=== PATIENT | male | born 1985 | race African-American/Black ===

== ENCOUNTER 2016-10-11 11:03 | Emergency (ER) | payer MEDICAID ==
[~2016-10-11] VITALS: Ht 182.9 cm; Wt 104.0 kg
[2016-10-11] MEDS ORDERED: TRAMADOL 50MG TABLET PO ONE (11:45)
[2016-10-11 11:51] VITALS: BP 154/99
[2016-10-11 11:59] LABS: BASOPHILS % 1.1 % (0.0-2.0); EOSINOPHILS % 1.7 % (0.0-5.0); HEMATOCRIT. 45.3 % (42.0-52.0); HEMOGLOBIN. 15.3 g/dL (14.0-18.0); LYMPHOCYTES % 31.1 % (20.0-50.0); MEAN CORPUSCULAR HEMOGLOBIN 27.6 pg (28.0-32.0); MEAN CORPUSCULAR VOLUME 81.8 fL (80.0-94.0); MEAN PLATELET VOLUME 8.8 fl (7.4-10.4); MONOCYTES % 8.2 % (2.0-8.0); NEUTROPHILS % 57.9 % (40.0-76.0); PLATELET 201 x1000/uL (130-400); RED BLOOD CELL COUNT 5.54 mill/uL (4.7-6.1); RED CELL DISTRIBUTION WIDTH 13.3 % (11.6-14.6)
== END 2016-10-11 13:03 | disposition home or self-care (01) ==
LOC: ER 12:01
DX: K64.4 Residual hemorrhoidal skin tags (principal)
CPT/HCPCS: 36415; 85025; 99283